=== PATIENT | female | born 1945 | race Caucasian/White ===

== ENCOUNTER 2016-07-03 08:41 | Emergency (ER) | payer MEDICARE, OTHER ==
[2016-07-03] MEDS ORDERED: ZOFRAN ODT 8 MG TAB ONE (11:13)
[2016-07-03] MEDS ORDERED: DILAUDID 1 MG/ML AMP ONE (11:14)
== END 2016-07-03 12:32 | disposition home or self-care (01) ==
LOC: ER 08:41
DX: S52.571A Other intraarticular fracture of lower end of right radius, initial encounter for closed fracture (principal); W01.0XXA Fall on same level from slipping, tripping and stumbling without subsequent striking against object, initial encounter; Y92.019 Unspecified place in single-family (private) house as the place of occurrence of the external cause
CPT/HCPCS: 29125; 73090; 73110; 96372; 99284; J1170